=== PATIENT | female | born 1960 | race African-American/Black ===

== ENCOUNTER 2017-07-24 10:05 | Emergency (ER) | payer MEDICAID ==
[~2017-07-24] VITALS: Ht 162.6 cm; Wt 84.0 kg
[~2017-07-24 10:05] MED LIST: VICODIN
[2017-07-24 10:14] VITALS: BP 142/82
== END 2017-07-24 12:17 | disposition left against medical advice (07) ==
LOC: ER 10:51
DX: Z53.21 Procedure and treatment not carried out due to patient leaving prior to being seen by health care provider (principal)

== ENCOUNTER 2017-12-23 19:00 | Emergency (ER) | payer MEDICAID ==
[~2017-12-23] VITALS: Ht 162.6 cm; Wt 83.0 kg
[2017-12-23 21:35] VITALS: BP 126/78
== END 2017-12-23 22:09 | disposition home or self-care (01) ==
LOC: ER 19:00
DX: S93.402A Sprain of unspecified ligament of left ankle, initial encounter (principal); X58.XXXA Exposure to other specified factors, initial encounter; Y93.89 Activity, other specified; Y92.89 Other specified places as the place of occurrence of the external cause; I10 Essential (primary) hypertension
CPT/HCPCS: 73610; 99284